=== PATIENT | male | born 1990 | race Hispanic/Latino ===

== ENCOUNTER 2018-12-08 12:16 | Day surgery (SDC) | payer MEDICAID ==
[~2018-12-08 12:16] MED LIST: LEVAQUIN 500MG/100ML 500 MG/100 ML BAG IV SCH
[2018-12-08] MEDS ORDERED: LACTATED RINGERS 1,000 ML IV SCH (13:41)
[2018-12-08] MEDS ORDERED: NACL 0.9% 1000 ML 1,000 ML ONE (14:07)
[2018-12-08] MEDS ORDERED: NACL 0.9% 1000 ML 1,000 ML IV SCH (14:09)
[2018-12-08] MEDS ORDERED: DIPRIVAN 10 MG/ML IV ONE (14:11)
[2018-12-08] MEDS ORDERED: VERSED IV ONE (14:11)
[2018-12-08] MEDS ORDERED: SUBLIMAZE ONE (14:11)
[2018-12-08] MEDS ORDERED: OMNIPAQUE (240mg) IV ONE (14:37)
[2018-12-08] MEDS ORDERED: WATER FOR IRRIG STERILE IR ONE (14:37)
--- NOTE | 2018-12-08 14:57 | Short Stay Summary ---
Short Stay Documentation Date of service: 12/08/18 - History H&P: obtained from office - Allergies and Medications Current Medications: Allergies No Known Allergies Allergy (Verified 12/07/18 09:30) Home Medications Medication Instructions Recorded Confirmed Last Taken Type Amoxicillin [Trimox] 250 mg PO Q8HR 12/07/18 12/08/18 12/07/18 History Ibuprofen 800 mg PO PRN PRN 12/07/18 12/08/18 12/04/18 History Sulfamethoxazole/Trimethoprim 1 each PO BID 12/07/18 12/08/18 12/07/18 History [Bactrim DS TAB] Vortioxetine Hydrobromide 20 mg PO QHS 12/07/18 12/08/18 12/07/18 History [Trintellix] traZODone [Desyrel] 100 mg PO QHS 12/07/18 12/08/18 12/07/18 History Active Medications Levofloxacin/Dextrose (Levaquin 500mg/100ml) 500 mg in 100 mls @ 100 mls/hr IV PREOP NAZ; Protocol Stop: 12/08/18 23:00 Sodium Chloride (Nacl 0.9% 1000 Ml) 1,000 mls @ 100 mls/hr IV DIRECT NAZ Stop: 12/08/18 23:59 - Brief post op/procedure progress note Date of procedure: 12/08/18 Pre-op diagnosis: penile cellulitis Post-op diagnosis: same Procedure: cysto, rpg (+ hep C) Anesthesia: GETA Surgeon: ORLANDO GARG Pathology: none Condition: stable - Hospital course Hospital course: ultram on chart pt has abx - Disposition Condition at discharge: Stable Disposition: DC-01 TO HOME OR SELFCARE Short Stay Discharge Plan Follow up with: ARSLAN ROSAS MD [Primary Care Provider] - 7 Days
--- NOTE | 2018-12-08 18:01 | Operative Report ---
PREOPERATIVE DIAGNOSES: Urinary tract infection, penile edema, cellulitis. POSTOPERATIVE DIAGNOSES: Urinary tract infection, penile edema, cellulitis. PROCEDURE: Cystoscopy, bilateral retrograde pyelograms. SURGEON: Kiran Prakash MD ANESTHESIA: General. ESTIMATED BLOOD LOSS: Minimal. FLUIDS: Crystalloid. COMPLICATIONS: No complications. INDICATIONS: This patient is a 28-year-old gentleman, initially went to the ER in [place] for 1-2 weeks of penile pain, swelling and drainage, it worsened, subjective fever and chills. He was placed on an antibiotic and told to follow up in the office. On exam, he had some diffuse penile edema, three black ulcers approximately 5 mm. 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 He is to continue his Bactrim and Augmentin. He presents now for intervention. DESCRIPTION OF PROCEDURE: The patient was taken to the operative suite, placed in a supine position. After adequate general anesthesia, placed in a dorsal lithotomy position, prepped and draped in a sterile fashion. The patient also gives a history of hepatitis C. Cystoscopy was performed with 22-Martiniquais Storz cystoscope. No urethral strictures. Prostate nonobstructing. Bladder, no tumors or stones were noted. Bilateral retrograde pyelograms were obtained with an 8 [place] catheter and 8 mL of contrast. No filling defects or obstruction. The patient has an incidental finding of a 2 collecting system, an incomplete duplication on the right side with the bifurcation starting approximately 2-3 cm from the ureteral orifice. No obstruction could be appreciated. His bladder was drained. Rectal exam was benign. He was extubated and taken to recovery room in stable condition. JOB# [id number] [facility]
[2018-12-08 18:17] VITALS: BP 118/70
--- NOTE | 2018-12-09 07:35 | Fluoroscopy Report ---
FLUOROSCOPY RETROGRADE UROGRAPHY: HISTORY: Urinary tract infection. FINDINGS: Fluoroscopy was provided by radiology during retrograde urography by the urologist. 7 fluoroscopic images were captured. There is adequate filling of the ureters and intrarenal collecting systems with no filling defects identified. 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 The 2 right ureters appear to fused just before the ureteral pelvic junction. No hydronephrosis. Please correlate with the procedural report if needed. IMPRESSION: No filling defect or abnormal dilatation is identified. Duplicated right renal collecting system.
== END 2018-12-08 16:35 | disposition home or self-care (01) ==
LOC: OR 12:16
PROVIDERS: ATTEND Urology
DX: N39.0 Urinary tract infection, site not specified (principal); N48.89 Other specified disorders of penis; L03.818 Cellulitis of other sites; F17.210 Nicotine dependence, cigarettes, uncomplicated; F31.9 Bipolar disorder, unspecified; Z79.899 Other long term (current) drug therapy; Z98.890 Other specified postprocedural states; Z86.2 Personal history of diseases of the blood and blood-forming organs and certain disorders involving the immune mechanism
CPT/HCPCS: 52005; 74420; A4217; C1758; J1956; J2250; J2704; J3010; J7030; Q9967